=== PATIENT | female | born 1945 | race American Indian/Alaskan Native ===

== ENCOUNTER 2020-06-26 21:50 | Observation (INO) | payer MEDICARE, OTHER ==
--- NOTE | 2020-06-26 22:05 | Emergency Department Report ---
ED Chest Pain HPI - General Chief Complaint: Chest Pain Stated Complaint: CHEST PAIN Time Seen by Provider: 06/26/20 21:57 Source: patient, EMS Mode of arrival: Stretcher Limitations: No Limitations - History of Present Illness Initial Comments: Patient is 74 years old female with history of hypertension, congestive heart failure and vascular dementia. Patient discharged from the hospital today after patient had STEMI on June 21 status post cardiac catheterization and stent to the distal LAD. Patient stated that she was fine until she got home when she started having a left-sided chest pain again. Patient described her pain as pressure with no radiation. Pain is 5 out of 10. No relieving or aggravating factors. Patient received aspirin by EMS. MD Complaint: chest pain -: Sudden, This afternoon Onset: during exertion Pain Location: left chest Severity: moderate Severity scale (0 -10): 5 Quality: tightness Consistency: constant - Related Data Home Medications Medication Instructions Recorded Confirmed Last Taken Anastrozole [Arimidex] 1 tab PO QDAY 06/21/20 06/21/20 Unknown FLUoxetine HCL [Prozac] 1 cap PO QDAY 06/21/20 06/21/20 06/21/20 10:00 20 mg lasix Albuterol Sulfate [Proair 90 mcg IH 12XD PRN 06/23/20 06/23/20 Unknown Respiclick] Famotidine [Acid-Pep] 29 tab PO BID 06/23/20 06/23/20 Unknown Levothyroxine [Synthroid] 0.025 tab PO QDAY 06/23/20 06/23/20 Unknown Meclizine [Antivert] 25 tab PO TID PRN 06/23/20 06/23/20 Unknown Previous Rx's Medication Instructions Recorded Last Taken Type Aspirin EC [Halfprin EC] 81 mg PO QDAY #60 tablet. 06/26/20 Unknown Rx AtorvaSTATin [Lipitor] 80 mg PO QHS #60 tablet 06/26/20 Unknown Rx Clopidogrel [Plavix] 75 mg PO QDAY #30 tablet 06/26/20 Unknown Rx Digoxin [Lanoxin] 0.125 mg PO DAILY@1700 #30 tablet 06/26/20 Unknown Rx Furosemide [Lasix TAB] 20 mg PO QDAY #30 tablet 06/26/20 Unknown Rx Metoprolol [Lopressor TAB] 25 mg PO BID #60 tablet 06/26/20 Unknown Rx Rivaroxaban [Xarelto] 20 mg PO DAILY #30 tablet 06/26/20 Unknown Rx Spironolactone [Aldactone] 25 mg PO QDAY #30 tablet 06/26/20 Unknown Rx Allergies Allergy/AdvReac Type Severity Reaction Status Date / Time No Known Allergies Allergy Unverified 06/21/20 16:48 Heart Score - HEART Score History: Highly suspicious EKG: Non-specific Age: > 65 Risk factors: > 3 risk factors or hx of atherosclerotic disease Troponin: < normal limit HEART Score: 7 - Critical Actions Critical Actions: >7 pts:50-65% risk of adverse cardiac event. Early invasive measures ED Review of Systems ROS: Stated complaint: CHEST PAIN Other details as noted in HPI Comment: All other systems reviewed and negative Constitutional: denies: chills, fever Respiratory: denies: cough, shortness of breath Gastrointestinal: denies: abdominal pain, nausea, vomiting Musculoskeletal: denies: back pain Neurological: denies: headache, weakness ED Past Medical Hx - Past Medical History Hx Hypertension: Yes Hx Heart Attack/AMI: Yes Hx Congestive Heart Failure: Yes (diastolic HF) Hx Arthritis: Yes (left knee has soft brase intact, pt. says from home) Hx Dementia: Yes - Surgical History Hx Coronary Stent: Yes (s/p heart valve replacement, on Xarelto @ home) - Social History Smoking Status: Never Smoker - Medications Home Medications: Home Medications Medication Instructions Recorded Confirmed Last Taken Type Anastrozole [Arimidex] 1 tab PO QDAY 06/21/20 06/21/20 Unknown History FLUoxetine HCL [Prozac] 1 cap PO QDAY 06/21/20 06/21/20 06/21/20 10:00 History 20 mg lasix Albuterol Sulfate [Proair 90 mcg IH 12XD PRN 06/23/20 06/23/20 Unknown History Respiclick] Famotidine [Acid-Pep] 29 tab PO BID 06/23/20 06/23/20 Unknown History Levothyroxine [Synthroid] 0.025 tab PO QDAY 06/23/20 06/23/20 Unknown History Meclizine [Antivert] 25 tab PO TID PRN 06/23/20 06/23/20 Unknown History Aspirin EC [Halfprin EC] 81 mg PO QDAY #60 tablet. 06/26/20 Unknown Rx AtorvaSTATin [Lipitor] 80 mg PO QHS #60 tablet 06/26/20 Unknown Rx Clopidogrel [Plavix] 75 mg PO QDAY #30 tablet 06/26/20 Unknown Rx Digoxin [Lanoxin] 0.125 mg PO DAILY@1700 #30 tablet 06/26/20 Unknown Rx Furosemide [Lasix TAB] 20 mg PO QDAY #30 tablet 06/26/20 Unknown Rx Metoprolol [Lopressor TAB] 25 mg PO BID #60 tablet 06/26/20 Unknown Rx Rivaroxaban [Xarelto] 20 mg PO DAILY #30 tablet 06/26/20 Unknown Rx Spironolactone [Aldactone] 25 mg PO QDAY #30 tablet 06/26/20 Unknown Rx ED Physical Exam - General Limitations: No Limitations General appearance: alert, in no apparent distress - Head Head exam: Present: atraumatic, normocephalic, normal inspection - Eye Eye exam: Present: normal appearance, PERRL - ENT ENT exam: Present: normal exam, normal orophraynx, mucous membranes moist - Neck Neck exam: Present: normal inspection, full ROM. Absent: tenderness, meningismus - Respiratory Respiratory exam: Present: normal lung sounds bilaterally - Cardiovascular Cardiovascular Exam: Present: irregular rhythm - GI/Abdominal GI/Abdominal exam: Present: soft, normal bowel sounds. Absent: distended, tende rness, guarding, rebound, rigid, organomegaly, mass, bruit, pulsatile mass - Extremities Exam Extremities exam: Present: normal inspection, full ROM, pedal edema - Back Exam Back exam: Present: normal inspection, full ROM. Absent: CVA tenderness (R), CVA tenderness (L) - Neurological Exam Neurological exam: Present: alert, oriented X3, CN II-XII intact - Skin Skin exam: Present: ecchymosis ED Course Vital Signs 06/26/20 21:56 Temperature 97.8 F Pulse Rate 100 H Respiratory 16 Rate O2 Sat by Pulse 96 Oximetry MATHEUS score - Matheus Score Age > 65: (1) Yes Aspirin use within the Past 7 Days: (0) No 3 or more CAD Risk Factors: (1) Yes 2 or more Angina events in past 24 hrs: (1) Yes Known CAD with more than 50% Stenosis: (0) No Elevated Cardiac Markers: (1) Yes ST Deviation Greater than 0.5mm: (1) Yes MATHEUS Score: 5 ED Medical Decision Making - Lab Data Result diagrams: 06/26/20 22:11 06/26/20 22:11 - EKG Data -: EKG Interpreted by Me - EKG Data 06/26/20 23:23 Atrial fibrillation with heart rate of 93. - Radiology Data Radiology results: report reviewed - Medical Decision Making Patient is 74 years old female with history of hypertension, congestive heart failure and vascular dementia. Patient discharged from the hospital today after patient had STEMI on June 21 status post cardiac catheterization and stent to the distal LAD. Patient stated that she was fine until she got home when she started having a left-sided chest pain again. Patient described her pain as pressure with no radiation. Pain is 5 out of 10. No relieving or aggravating factors. Patient received aspirin by EMS. EKG showed atrial fibrillation with a heart rate of 93. Patient stated that her chest pain is better after the aspirin. Chest x-ray showed pulmonary edema. Patient received Lasix 40 mg IV. Labs reviewed and showed a troponin of 2.7 however patient previous troponin after the STEMI was 11. I discussed the patient with Dr. Kelvin Weaver, aircraft inspector on-call and advised to admit the patient to the hospital and they will follow up with the patient in the morning. I discussed the patient with Dr. Soto, he agreed to admit the patient to medical service for further management. Critical Care Time: Yes Critical care time in (mins) excluding proc time.: 30 Critical care attestation.: If time is entered above; I have spent that time in minutes in the direct care of this critically ill patient, excluding procedure time. ED Disposition Clinical Impression: Acute chest pain, Acute exacerbation of CHF (congestive heart failure), Elevated troponin Disposition: [id number] OP ADMIT IP TO THIS HOSP Is pt being admited?: Yes Condition: Stable Instructions: Chest Pain (ED)
[2020-06-26 22:47] LABS: Hematocrit 29.8 % (30.3-42.9); Hemoglobin 9.5 gm/dl (10.1-14.3); Mean Corpuscular HGB Conc 32 % (30-34); Mean Corpuscular Volume 76 fl (79-97); Platelet Count 320 K/mm3 (140-440); Red Blood Count 3.91 M/mm3 (3.65-5.03)
[2020-06-26 22:51] LABS: Calcium 8.7 mg/dL (8.4-10.2)
[2020-06-26 22:53] LABS: Red Cell Distribution Width 23.5 % (13.2-15.2)
--- NOTE | 2020-06-26 22:54 | XRay Report ---
XR chest 1V ap INDICATION / CLINICAL INFORMATION: Chest Pain. COMPARISON: None available. FINDINGS: SUPPORT DEVICES: None. HEART /PULMONARY VASCULATURE: Cardiac enlargement with pulmonary vasculature congestion. LUNGS / PLEURA: Diffuse increased interstitial markings, likely reflecting edema. No focal airspace c onsolidation. No sizable pleural effusion. No pneumothorax. ADDITIONAL FINDINGS: No significant additional findings. IMPRESSION: Findings most consistent with CHF with pulmonary edema. Signer Name: Pérez Wade MD Signed: 06/26/2020 10:50 PM Workstation Name: [id number]
[2020-06-26 22:59] LABS: INR 4.04 (0.87-1.13)
[2020-06-26 23:00] LABS: Partial Thromboplastin Time 46.2 Sec. (24.2-36.6)
[2020-06-26] MEDS ORDERED: FUROSEMIDE 40 MG/4 ML INJ IV ONE (23:22)
[2020-06-26 23:39] LABS: Albumin 3.6 g/dL (3.9-5); Bilirubin,Direct 0.3 mg/dL (0-0.2)
[2020-06-27] MEDS ORDERED: MORPHINE 2 MG/1 ML INJ IV PRN (00:42)
[2020-06-27] MEDS ORDERED: POTASSIUM CHLORIDE ER 20 MEQ TAB PO ONE (01:32)
[2020-06-27] MEDS ORDERED: MECLIZINE 25 MG TAB PO PRN (02:08)
[2020-06-27] MEDS: POTASSIUM CHLORIDE 10 MEQ 10 MEQ/100 ML BAG IV SCH ×2 (02:37→03:40)
[2020-06-27 03:44] LABS: Platelet Estimate Consistent w Auto; Total Cells Counted 100
[2020-06-27 03:45] LABS: Anisocytosis 2+; Hypochromasia 1+; Ovalocytes Few
[2020-06-27 03:46] LABS: Schistocytes Few
--- NOTE | 2020-06-27 04:57 | History and Physical Report ---
History of Present Illness Date of examination: 06/26/20 Date of admission: 06/26/20 23:35 Chief complaint: Chest pain History of present illness: History of presenting illness, patient is a 74-year-old female who was discharged from hospital on 06/26/2020 after being treated for ST elevation myocardial infarction with cardiac catheterization and stent placement. Patient left the hospital in the morning and then started having chest pain later on in the evening which occurred as pressure-like symptoms involving the precordial area and nonradiating, pain was worsened by movement and deep breaths. Patient also has associated symptoms of shortness of breath and diaphoresis but denied history of nausea and vomiting and denied history of fever or chills cough Past History Past Medical History: acute SC, arthritis, CAD, heart failure, hypertension, other (DEMENTIA) Past Surgical History: Other (AORTIC VALVE REPLACEMENT SURGERY) Social history: no significant social history Family history: no significant family history Medications and Allergies Allergies Allergy/AdvReac Type Severity Reaction Status Date / Time No Known Allergies Allergy Unverified 06/21/20 16:48 Home Medications Medication Instructions Recorded Confirmed Last Taken Type Anastrozole [Arimidex] 1 tab PO QDAY 06/21/20 06/21/20 Unknown History FLUoxetine HCL [Prozac] 1 cap PO QDAY 06/21/20 06/21/20 06/21/20 10:00 History 20 mg lasix Albuterol Sulfate [Proair 90 mcg IH 12XD PRN 06/23/20 06/23/20 Unknown History Respiclick] Famotidine [Acid-Pep] 29 tab PO BID 06/23/20 06/23/20 Unknown History Levothyroxine [Synthroid] 0.025 tab PO QDAY 06/23/20 06/23/20 Unknown History Meclizine [Antivert] 25 tab PO TID PRN 06/23/20 06/23/20 Unknown History Aspirin EC [Halfprin EC] 81 mg PO QDAY #60 tablet. 06/26/20 Unknown Rx AtorvaSTATin [Lipitor] 80 mg PO QHS #60 tablet 06/26/20 Unknown Rx Clopidogrel [Plavix] 75 mg PO QDAY #30 tablet 06/26/20 Unknown Rx Digoxin [Lanoxin] 0.125 mg PO DAILY@1700 #30 tablet 06/26/20 Unknown Rx Furosemide [Lasix TAB] 20 mg PO QDAY #30 tablet 06/26/20 Unknown Rx Metoprolol [Lopressor TAB] 25 mg PO BID #60 tablet 06/26/20 Unknown Rx Rivaroxaban [Xarelto] 20 mg PO DAILY #30 tablet 06/26/20 Unknown Rx Spironolactone [Aldactone] 25 mg PO QDAY #30 tablet 06/26/20 Unknown Rx Active Meds: Active Medications Acetaminophen (Acetaminophen 325 Mg Tab) 650 mg PO Q4H PRN PRN Reason: Headache Aspirin (Aspirin 81 Mg Tab Chew) 81 mg PO QDAY [facility] Famotidine (Famotidine 20 Mg Tab) 20 mg PO BID [facility] Fluoxetine HCl (Fluoxetine 20 Mg Cap) 20 mg PO QDAY [facility] Furosemide (Furosemide 40 Mg/4 Ml Inj) 40 mg IV QDAY [facility] Levothyroxine Sodium (Levothyroxine 25 Mcg Tab) 25 mcg PO QDAY@0600 [facility] Meclizine HCl (Meclizine 25 Mg Tab) 25 mg PO TID PRN PRN Reason: dizziness Metoprolol Tartrate (Metoprolol Tartrate 25 Mg Tab) 25 mg PO BID [facility] Morphine Sulfate (Morphine 2 Mg/1 Ml Inj) 2 mg IV Q3H PRN PRN Reason: Pain, Moderate (4-6) Last Admin: 06/27/20 02:17 Dose: 2 mg Documented by: Nitroglycerin (Nitroglycerin 2% Oint 1 Gm) 0.5 inch TP QIDNTG [facility]; Protocol Rivaroxaban (Rivaroxaban 20 Mg Tab) 20 mg PO DAILY [facility]; Protocol Spironolactone (Spironolactone 25 Mg Tab) 25 mg PO QDAY [facility] Review of Systems Constitutional: sweats, weakness, no fever, no chills, no night sweats, no anorexia, no fatigue Eyes: bilateral: other (NO BILATERAL EYE SYMPTOMS) Ears, nose, mouth and throat: no ear pain Breasts: deferred Cardiovascular: chest pain, orthopnea, shortness of breath, no palpitations, no rapid/irregular heart beat, no syncope, no lightheadedness Respiratory: shortness of breath, dyspnea on exertion, no cough, no cough with sputum, no excessive sputum, no hemoptysis Gastrointestinal: no abdominal pain, no nausea, no vomiting, no diarrhea, no constipation, no change in bowel habits, no hematemesis, no coffee ground emesis, no hematochezia, no loss of appetite Genitourinary Female: no Menstruation: postmenopausal Musculoskeletal: no neck stiffness, no neck pain, no low back pain Integumentary: no rash, no pruritis, no redness, no sores Neurological: no weakness, no tingling, no seizures, no syncope, no tremors, no ataxia, no vertigo, no headaches, no convulsions Psychiatric: no anxiety, no confusion Endocrine: no polydipsia, no polyuria, no nocturia, no palpatations Hematologic/Lymphatic: no easy bruising Exam - Constitutional Vitals: Temp Pulse Resp BP Pulse Ox 97.7 F 88 20 135/77 100 06/27/20 01:31 06/27/20 01:41 06/27/20 01:31 06/27/20 01:31 06/27/20 01:31 General appearance: Present: mild distress - EENT Eyes: Present: PERRL, EOM intact ENT: hearing intact, clear oral mucosa - Neck Neck: Present: supple - Respiratory Respiratory effort: normal - Cardiovascular Rhythm: regular Heart Sounds: Present: S1 & S2. Absent: gallop, systolic murmur, diastolic murmur, click - Extremities Extremities: no ischemia, No edema Peripheral Pulses: within normal limits - Abdominal General gastrointestinal: Present: soft, non-tender, non-distended. Absent: tender, distended, rigid, hepatomegaly, splenomegaly Female genitourinary: Present: deferred - Rectal Rectal Exam: deferred - Integumentary Integumentary: Present: clear, warm, dry - Musculoskeletal Musculoskeletal: generalized weakness - Psychiatric Psychiatric: appropriate mood/affect HEART Score - HEART Score EKG: Non-specific Age: > 65 Risk factors: > 3 risk factors or hx of atherosclerotic disease Troponin: Troponin T 2.620 ng/mL (0.00-0.029) H* 06/27/20 01:16 Troponin: 1-3x normal limit - Critical Actions Critical Actions: 4-6 pts:12-16.6% risk of adverse cardiac event. Should be admitted (PATIENT BEING ADMITTED AND WORKED UP FOR CAD) Results - Labs CBC & Chem 7: 06/26/20 22:11 06/26/20 22:11 Labs: Laboratory Last Values WBC 16.1 K/mm3 (4.5-11.0) H 06/26/20 22:11 RBC 3.91 M/mm3 (3.65-5.03) 06/26/20 22:11 Hgb 9.5 gm/dl (10.1-14.3) L 06/26/20 22:11 Hct 29.8 % (30.3-42.9) L 06/26/20 22:11 MCV 76 fl (79-97) L 06/26/20 22:11 MCH 24 pg (28-32) L 06/26/20 22:11 MCHC 32 % (30-34) 06/26/20 22:11 RDW 23.5 % (13.2-15.2) H 06/26/20 22:11 Plt Count 320 K/mm3 (140-440) 06/26/20 22:11 Add Manual Diff Complete 06/26/20 22:11 Total Counted 100 06/26/20 22:11 Seg Neutrophils % Heat Set Operator 06/26/20 22:11 Seg Neuts % (Manual) 91.0 % (40.0-70.0) H 06/26/20 22:11 Lymphocytes % (Manual) 4.0 % (13.4-35.0) L 06/26/20 22:11 Monocytes % (Manual) 5.0 % (0.0-7.3) 06/26/20 22:11 Nucleated RBC % Not Reportable 06/26/20 22:11 Seg Neutrophils # Man 14.7 K/mm3 (1.8-7.7) H 06/26/20 22:11 Band Neutrophils # 0.0 K/mm3 06/26/20 22:11 Lymphocytes # (Manual) 0.6 K/mm3 (1.2-5.4) L 06/26/20 22:11 Abs React Lymphs (Man) 0.0 K/mm3 06/26/20 22:11 Monocytes # (Manual) 0.8 K/mm3 (0.0-0.8) 06/26/20 22:11 Eosinophils # (Manual) 0.0 K/mm3 (0.0-0.4) 06/26/20 22:11 Basophils # (Manual) 0.0 K/mm3 (0.0-0.1) 06/26/20 22:11 Metamyelocytes # 0.0 K/mm3 06/26/20 22:11 Myelocytes # 0.0 K/mm3 06/26/20 22:11 Promyelocytes # 0.0 K/mm3 06/26/20 22:11 Blast Cells # 0.0 K/mm3 06/26/20 22:11 WBC Morphology Not Reportable 06/26/20 22:11 Hypersegmented Neuts Not Reportable 06/26/20 22:11 Hyposegmented Neuts Not Reportable 06/26/20 22:11 Hypogranular Neuts Not Reportable 06/26/20 22:11 Smudge Cells Not Reportable 06/26/20 22:11 Toxic Granulation Not Reportable 06/26/20 22:11 Toxic Vacuolation Not Reportable 06/26/20 22:11 Dohle Bodies Not Reportable 06/26/20 22:11 Pelger-Huet Anomaly Not Reportable 06/26/20 22:11 Reinier Rods Not Reportable 06/26/20 22:11 Platelet Estimate Consistent w auto 06/26/20 22:11 Clumped Platelets Not Reportable 06/26/20 22:11 Plt Clumps, EDTA Not Reportable 06/26/20 22:11 Large Platelets Not Reportable 06/26/20 22:11 Giant Platelets Not Reportable 06/26/20 22:11 Platelet Satelliting Not Reportable 06/26/20 22:11 Plt Morphology Comment Not Reportable 06/26/20 22:11 RBC Morphology Not Reportable 06/26/20 22:11 Dimorphic RBCs Not Reportable 06/26/20 22:11 Polychromasia Few 06/26/20 22:11 Hypochromasia 1+ 06/26/20 22:11 Poikilocytosis Not Reportable 06/26/20 22:11 Anisocytosis 2+ 06/26/20 22:11 Microcytosis Not Reportable 06/26/20 22:11 Macrocytosis Not Reportable 06/26/20 22:11 Spherocytes Not Reportable 06/26/20 22:11 Pappenheimer Bodies Not Reportable 06/26/20 22:11 Sickle Cells Not Reportable 06/26/20 22:11 Target Cells Not Reportable 06/26/20 22:11 Tear Drop Cells Not Reportable 06/26/20 22:11 Ovalocytes Few 06/26/20 22:11 Helmet Cells Not Reportable 06/26/20 22:11 [place] Bodies Not Reportable 06/26/20 22:11 [place] Rings Not Reportable 06/26/20 22:11 Mary Cells Not Reportable 06/26/20 22:11 Bite Cells Not Reportable 06/26/20 22:11 Crenated Cell Not Reportable 06/26/20 22:11 Elliptocytes Few 06/26/20 22:11 Acanthocytes (Spur) Not Reportable 06/26/20 22:11 Rouleaux Not Reportable 06/26/20 22:11 Hemoglobin C Crystals Not Reportable 06/26/20 22:11 Schistocytes Few 06/26/20 22:11 Malaria parasites Not Reportable 06/26/20 22:11 [place] Bodies Not Reportable 06/26/20 22:11 Hem Pathologist Commnt No 06/26/20 22:11 PT 39.7 Sec. (12.2-14.9) H 06/26/20 22:11 INR 4.04 (0.87-1.13) H 06/26/20 22:11 APTT 46.2 Sec. (24.2-36.6) H 06/26/20 22:11 Sodium 138 mmol/L (137-145) 06/26/20 22:11 Potassium 3.3 mmol/L (3.6-5.0) L 06/26/20 22:11 Chloride 103.4 mmol/L (98-107) 06/26/20 22:11 Carbon Dioxide 20 mmol/L (22-30) L 06/26/20 22:11 Anion Gap 18 mmol/L 06/26/20 22:11 BUN 16 mg/dL (7-17) 06/26/20 22:11 Creatinine 1.1 mg/dL (0.6-1.2) 06/26/20 22:11 Estimated GFR 59 ml/min 06/26/20 22:11 BUN/Creatinine Ratio 15 % 06/26/20 22:11 Glucose 113 mg/dL (65-100) H 06/26/20 22:11 Calcium 8.7 mg/dL (8.4-10.2) 06/26/20 22:11 Total Bilirubin 0.90 mg/dL (0.1-1.2) 06/26/20 22:11 Direct Bilirubin 0.3 mg/dL (0-0.2) H 06/26/20 22:11 Indirect Bilirubin 0.6 mg/dL 06/26/20 22:11 AST 50 units/L (5-40) H 06/26/20 22:11 ALT 25 units/L (7-56) 06/26/20 22:11 Alkaline Phosphatase 135 units/L (35-129) H 06/26/20 22:11 Troponin T 2.620 ng/mL (0.00-0.029) H* 06/27/20 01:16 NT-Pro-B Natriuret Pep 36570 pg/mL (0-900) H 06/26/20 22:11 Total Protein 6.2 g/dL (6.3-8.2) L 06/26/20 22:11 Albumin 3.6 g/dL (3.9-5) L 06/26/20 22:11 Albumin/Globulin Ratio 1.4 % 06/26/20 22:11 Lipase 53 units/L (13-60) 06/26/20 22:11 Sims/IV: Voiding Method External Female Catheter Assessment and Plan - Patient Problems (1) Hypokalemia Current Visit: Yes Status: Acute Plan to address problem: 1. POTASSIUM REPLACEMENT 2. BMP FOR POTASSIUM LEVEL MONITORING (2) Acute chest pain Current Visit: Yes Status: Acute Plan to address problem: 1. SERIAL CARDIAC ENZYMES 2. NITROPASTE 3. I.V MORPHINE 4. I.V ZOFRAN FOR NAUSEA AND VOMITING 5. CARDIOLOGY CONSULT 6 . ASPIRIN PO 7. TYLENOL PO FOR HEADACHE 8. OXYGEN BY NASAL CANNAL (3) Acute exacerbation of CHF (congestive heart failure) Current Visit: Yes Status: Acute Plan to address problem: 1 I.V LASIX 2. NITROPASTE 3. SERIAL CARDIAC ENZYMES 4. CARDIOLOGY CONSULT
[2020-06-27] MEDS: LEVOTHYROXINE 25 MCG TAB PO SCH (06:14)
[2020-06-27] MEDS: NITROGLYCERIN 2% OINT 1 GM TP SCH ×4 (06:15→18:46)
[2020-06-27 06:55] LABS: Creatine Kinase MB 11.6 ng/mL (0.0-4.0)
[2020-06-27 06:58] LABS: BUN/Creatinine Ratio 15; Blood Urea Nitrogen 15 mg/dL (7-17); Calcium 8.6 mg/dL (8.4-10.2); Hemolysis Index 23
[2020-06-27] MEDS ORDERED: ASPIRIN 325 MG TAB PO SCH (10:00)
[2020-06-27] MEDS: ACETAMINOPHEN 325 MG TAB PO PRN ×2 (10:37→23:50)
[2020-06-27] MEDS: RIVAROXABAN 20 MG TAB PO SCH (10:38)
[2020-06-27] MEDS: FAMOTIDINE 20 MG TAB PO SCH ×2 (10:38→22:48)
[2020-06-27] MEDS: METOPROLOL TARTRATE 25 MG TAB PO SCH ×2 (10:38→22:48)
[2020-06-27] MEDS: FLUoxetine 20 MG CAP PO SCH (10:38)
[2020-06-27] MEDS: ASPIRIN 81 MG TAB CHEW PO SCH (10:39)
[2020-06-27] MEDS: FUROSEMIDE 40 MG/4 ML INJ IV SCH (10:40)
[2020-06-27] MEDS: SPIRONOLACTONE 25 MG TAB PO SCH (10:41)
[2020-06-27] MEDS ORDERED: DIGOXIN 0.5 MG/2 ML INJ IV NR (11:05)
--- NOTE | 2020-06-27 13:06 | Consultation ---
History of Present Illness Consult date: 06/27/20 Requesting physician: ANTHONY BANEGAS Consult reason: chest pain, other (s/p STEMI) History of present illness: This patent is a 74 year old female with a significant history of CAD, s/p STEMI 06/21/2020 with PCI, HTN, HFrEF, ICMP, Persistent Atrial Fibrillation, chronic anticoagulation with xarelto, Bioprosthetic Mitral Valve Replacement, CVA with right sided residual weakness, Dementia, Arthritis. She is known to our practice. Patient was released from hospital on 06/26/2020 after being admitted for STEMI on 06/21/2020, receiving LHC and MARIAELENA Stent placement in distal LAD on same date. Patient presented to [facility] ER by EMS after chest pain returned last night with shortness of breath when supine. Cardiology was consulted for chest pain s/p recent STEMI. Chest pain was described as 5/10 pressure radiating into left arm, aggravated by movement of the shoulder. Patient has significant, resolving hematoma to upper and lower left arm from infiltrated IV access in LAC. Echo 06/21/20 EF 20-25%, mild TR, prosthetic mitral valve present, mid anteroseptal, apical septal, apcal anterior, apical lateral and apical inferior wall are akinetic CXR 06/27/20 showed pulmonary Edema. Patient received lasix 40u IV overnight and has trace lower extremity edema today. Telemetry reviewed: Atrial fibrillation, HR 100s. Past History Past Medical History: acute [place], arthritis, CAD, heart failure, hypertension, other (DEMENTIA) Past Surgical History: Other (AORTIC VALVE REPLACEMENT SURGERY) Social history: no significant social history Family history: no significant family history Medications and Allergies Allergies Allergy/AdvReac Type Severity Reaction Status Date / Time No Known Allergies Allergy Unverified 06/21/20 16:48 Home Medications Medication Instructions Recorded Confirmed Last Taken Type Anastrozole [Arimidex] 1 tab PO QDAY 06/21/20 06/21/20 Unknown History FLUoxetine HCL [Prozac] 1 cap PO QDAY 06/21/20 06/21/20 06/21/20 10:00 History 20 mg lasix Albuterol Sulfate [Proair 90 mcg IH 12XD PRN 06/23/20 06/23/20 Unknown History Respiclick] Famotidine [Acid-Pep] 29 tab PO BID 06/23/20 06/23/20 Unknown History Levothyroxine [Synthroid] 0.025 tab PO QDAY 06/23/20 06/23/20 Unknown History Meclizine [Antivert] 25 tab PO TID PRN 06/23/20 06/23/20 Unknown History Aspirin EC [Halfprin EC] 81 mg PO QDAY #60 tablet. 06/26/20 Unknown Rx AtorvaSTATin [Lipitor] 80 mg PO QHS #60 tablet 06/26/20 Unknown Rx Clopidogrel [Plavix] 75 mg PO QDAY #30 tablet 06/26/20 Unknown Rx Digoxin [Lanoxin] 0.125 mg PO DAILY@1700 #30 tablet 06/26/20 Unknown Rx Furosemide [Lasix TAB] 20 mg PO QDAY #30 tablet 06/26/20 Unknown Rx Metoprolol [Lopressor TAB] 25 mg PO BID #60 tablet 06/26/20 Unknown Rx Rivaroxaban [Xarelto] 20 mg PO DAILY #30 tablet 06/26/20 Unknown Rx Spironolactone [Aldactone] 25 mg PO QDAY #30 tablet 06/26/20 Unknown Rx Active Meds: Active Medications Acetaminophen (Acetaminophen 325 Mg Tab) 650 mg PO Q4H PRN PRN Reason: Headache Last Admin: 06/27/20 10:37 Dose: 650 mg Documented by: Aspirin (Aspirin 81 Mg Tab Chew) 81 mg PO QDAY [facility] Last Admin: 06/27/20 10:39 Dose: 81 mg Documented by: Atorvastatin Calcium (Atorvastatin 40 Mg Tab) 80 mg PO QHS [facility] Clopidogrel Bisulfate (Clopidogrel 75 Mg Tab) 75 mg PO QDAY [facility] Digoxin (Digoxin 0.5 Mg/2 Ml Inj) 0.25 mg IV ONCE NR Stop: 06/27/20 16:00 Digoxin (Digoxin 0.25 Mg Tab) 0.25 mg PO DAILY@1700 [facility] Famotidine (Famotidine 20 Mg Tab) 20 mg PO BID [facility] Last Admin: 06/27/20 10:38 Dose: 20 mg Documented by: Fluoxetine HCl (Fluoxetine 20 Mg Cap) 20 mg PO QDAY [facility] Last Admin: 06/27/20 10:38 Dose: 20 mg Documented by: Furosemide (Furosemide 40 Mg/4 Ml Inj) 40 mg IV QDAY [facility] Last Admin: 06/27/20 10:40 Dose: 40 mg Documented by: Levothyroxine Sodium (Levothyroxine 25 Mcg Tab) 25 mcg PO QDAY@0600 [facility] Last Admin: 06/27/20 06:14 Dose: 25 mcg Documented by: Meclizine HCl (Meclizine 25 Mg Tab) 25 mg PO TID PRN PRN Reason: dizziness Metoprolol Tartrate (Metoprolol Tartrate 25 Mg Tab) 25 mg PO BID [facility] Last Admin: 06/27/20 10:38 Dose: 25 mg Documented by: Morphine Sulfate (Morphine 2 Mg/1 Ml Inj) 2 mg IV Q3H PRN PRN Reason: Pain, Moderate (4-6) Last Admin: 06/27/20 02:17 Dose: 2 mg Documented by: Nitroglycerin (Nitroglycerin 2% Oint 1 Gm) 0.5 inch TP QIDNTG [facility]; Protocol Last Admin: 06/27/20 10:39 Dose: 0.5 inch Documented by: Rivaroxaban (Rivaroxaban 20 Mg Tab) 20 mg PO DAILY [facility]; Protocol Last Admin: 06/27/20 10:38 Dose: 20 mg Documented by: Spironolactone (Spironolactone 25 Mg Tab) 25 mg PO QDAY [facility] Last Admin: 06/27/20 10:41 Dose: 25 mg Documented by: Review of Systems Constitutional: no weight loss, no weight gain, no fever, no chills, no sweats Ears, nose, mouth and throat: no ear pain, no ear discharge, no tinnitis, no nose pain, no nasal discharge, no sinus pressure, no sinus pain Cardiovascular: chest pain, rapid/irregular heart beat, edema (Trace Lower Extremity Edema), shortness of breath, no syncope, no lightheadedness Respiratory: shortness of breath, no cough, no dyspnea on exertion Gastrointestinal: no abdominal pain, no nausea, no vomiting, no diarrhea, no constipation, no change in bowel habits Genitourinary Female: no dyspareunia, no pelvic pain, no flank pain Musculoskeletal: other (Left Shoulder Pain), no neck stiffness, no neck pain Integumentary: no rash, no pruritis, no redness, no sores, no wounds Neurological: no head injury, no transient paralysis, no paralysis, no weakness, no parathesias, no numbness, no tingling, no seizures Psychiatric: no anxiety Endocrine: no cold intolerance, no heat intolerance Hematologic/Lymphatic: easy bruising, easy bleeding Allergic/Immunologic: no urticaria Physical Examination Last Vital Signs Temp 99.2 F 06/27/20 12:08 Pulse 92 H 06/27/20 12:08 Resp 20 06/27/20 04:20 BP 137/85 06/27/20 12:08 Pulse Ox 94 06/27/20 12:08 General appearance: no acute distress HEENT: Positive: PERRL, Normocephaly, Mucus Membranes Moist Neck: Positive: neck supple, trachea midline Cardiac: Positive: irregularly irregular, S1/S2 Lungs: Positive: Decreased Breath Sounds Neuro: Positive: Grossly Intact Abdomen: Positive: Unremarkable Skin: Positive: Bruising (Large hematoma to left arm). Negative: Rash, Wound Incision: Cardiac Cath Site (Right Groin LHC site C/D/I no bleeding or hematoma noted) Extremities: Present: upper extr. pulses, lower extr. pulses, edema (Trace lower extremity edema) Results 06/26/20 22:11 06/27/20 06:05 Cardiac Enzymes 06/26/20 06/27/20 Range/Units 22:11 06:05 AST 50 H (5-40) units/L CK-MB (CK-2) 11.6 H (0.0-4.0) ng/mL Coagulation 06/26/20 Range/Units 22:11 PT 39.7 H (12.2-14.9) Sec. INR 4.04 H (0.87-1.13) APTT 46.2 H (24.2-36.6) Sec. CBC 06/26/20 Range/Units 22:11 WBC 16.1 H (4.5-11.0) K/mm3 RBC 3.91 (3.65-5.03) M/mm3 Hgb 9.5 L (10.1-14.3) gm/dl Hct 29.8 L (30.3-42.9) % Plt Count 320 (140-440) K/mm3 Comprehensive Metabolic Panel 06/26/20 06/26/20 06/27/20 Range/Units 22:11 22:11 06:05 Sodium 138 139 (137-145) mmol/L Potassium 3.3 L 3.9 (3.6-5.0) mmol/L Chloride 103.4 103.2 (98-107) mmol/L Carbon Dioxide 20 L 21 L (22-30) mmol/L BUN 16 15 (7-17) mg/dL Creatinine 1.1 1.0 (0.6-1.2) mg/dL Glucose 113 H 104 H (65-100) mg/dL Calcium 8.7 8.6 (8.4-10.2) mg/dL Direct Bilirubin 0.3 H (0-0.2) mg/dL Indirect Bilirubin 0.6 mg/dL AST 50 H (5-40) units/L ALT 25 (7-56) units/L Alkaline Phosphatase 135 H (35-129) units/L Total Protein 6.2 L (6.3-8.2) g/dL Albumin 3.6 L (3.9-5) g/dL - Imaging and Cardiology Echo: report reviewed (EF 20-25%, mild TR, prosthetic mitral valve present, mid anteroseptal, apical septal, apcal anterior, apical lateral and apical inferior wall are akinetic) EKG: report reviewed, image reviewed - EKG Interpretation EKG shows: atrial fibrillation EKG interpretations - Telemetry EKG Rhythm: Atrial Fibrillation - EKG Supraventricular dysrhythmia: atrial fibrillation Assessment and Plan Patient presents with chest pain/shoulder pain and shortness of breath s/p recent STEMI with stent placement. Admission ECG with Afib, no new acute ische aman changes. She is noted to be in atrial fibrillation with HR 100s. Agree with diuresis with Lasix IV. Will continue Spironolactone. Optimize HR: Give single dose IV digoxin, resume Digoxin PO tomorrow. Continue PO lopressor. If BP remains stable will consider addition of ACEI/ARB tomorrow. Continue Xarelto for AC. Continue ASA 81mg and plavix. Will repeat CXR to monitor pulmonary edema. Echo 06/21/20 EF 20-25%, mild TR, prosthetic mitral valve present, mid anteroseptal, apical septal, apcal anterior, apical lateral and apical inferior wall are akinetic. Will follow. This patient was seen in conjunction with Dr Wolfe who agrees with this assessment and plan of care. - Patient Problems (1) Acute HFrEF (heart failure with reduced ejection fraction) Current Visit: Yes Status: Acute (2) Ischemic cardiomyopathy Current Visit: Yes Status: Chronic (3) Acute chest pain Current Visit: Yes Status: Acute (4) Elevated troponin Current Visit: Yes Status: Acute (5) Atrial fibrillation Current Visit: Yes Status: Chronic Qualifiers: Atrial fibrillation type: unspecified Qualified Code(s): I48.91 - Unspecified atrial fibrillation (6) CAD (coronary artery disease) Current Visit: Yes Status: Chronic (7) Stented coronary artery Current Visit: Yes Status: Chronic (8) Dementia Current Visit: Yes Status: Chronic (9) History of CVA (cerebrovascular accident) Current Visit: Yes Status: Chronic Plan to address problem: right sided residual weakness (10) History of mitral valve repair Current Visit: Yes Status: Chronic Plan to address problem: Bioprosthetic (11) Anemia Current Visit: Yes Status: Acute
[2020-06-27 14:50] LABS: Creatine Kinase MB 12.4 ng/mL (0.0-4.0)
[2020-06-27] MEDS: CLOPIDOGREL 75 MG TAB PO SCH (14:52)
[2020-06-28 05:11] LABS: Hematocrit 28.9 % (30.3-42.9); Hemoglobin 9.1 gm/dl (10.1-14.3); Mean Corpuscular HGB Conc 32 % (30-34); Mean Corpuscular Volume 76 fl (79-97); Platelet Count 328 K/mm3 (140-440)
[2020-06-28 05:33] LABS: Red Cell Distribution Width 23.6 % (13.2-15.2)
[2020-06-28 05:38] LABS: BUN/Creatinine Ratio 18; Blood Urea Nitrogen 16 mg/dL (7-17); Calcium 8.7 mg/dL (8.4-10.2); Hemolysis Index 5
[2020-06-28] MEDS: NITROGLYCERIN 2% OINT 1 GM TP SCH ×4 (06:19→18:36)
[2020-06-28] MEDS: LEVOTHYROXINE 25 MCG TAB PO SCH (06:20)
[2020-06-28] MEDS ORDERED: POTASSIUM CHLORIDE ER 20 MEQ TAB PO NR (08:00)
--- NOTE | 2020-06-28 08:01 | XRay Report ---
CHEST 1 VIEW INDICATION: Heart failure. COMPARISON: 06/26/2020 FINDINGS: Support devices: None. Heart: Stable mild cardiomegaly. Midline sternotomy is noted. Lungs/Pleura: 25% decrease in pulmonary venous congestion is suspected. The lungs are clear otherwise . No large pleural effusion or pneumothorax. Additional findings: None. IMPRESSION: Mild improvement. Signer Name: Adam Lucero Jr, MD Signed: 06/28/2020 7:57 AM Workstation Name: [id number]
[2020-06-28] MEDS: RIVAROXABAN 20 MG TAB PO SCH (09:17)
[2020-06-28] MEDS: SPIRONOLACTONE 25 MG TAB PO SCH (09:17)
[2020-06-28] MEDS: FAMOTIDINE 20 MG TAB PO SCH ×2 (09:17→22:08)
[2020-06-28] MEDS: METOPROLOL TARTRATE 25 MG TAB PO SCH ×3 (09:17→22:12)
[2020-06-28] MEDS: FLUoxetine 20 MG CAP PO SCH (09:17)
[2020-06-28] MEDS: FUROSEMIDE 40 MG/4 ML INJ IV SCH (09:18)
[2020-06-28] MEDS: ASPIRIN 81 MG TAB CHEW PO SCH (09:18)
[2020-06-28] MEDS: CLOPIDOGREL 75 MG TAB PO SCH (09:22)
--- NOTE | 2020-06-28 10:44 | Progress Note ---
Assessment and Plan Pt appears to be clinically improving. CXR today shows improvement in pulmonary edema. Optimize HR - increase PO lopressor. Cont all other present cardiac management. F/u BMP in AM. PT and OT evaluations in progress. Discharge planning per case management. The patient has been seen in conjunction with Dr. Wolfe who agrees with the a ssessment and plan of care. - Patient Problems (1) Acute HFrEF (heart failure with reduced ejection fraction) Current Visit: Yes Status: Acute (2) Ischemic cardiomyopathy Current Visit: Yes Status: Chronic (3) CAD (coronary artery disease) Current Visit: Yes Status: Chronic (4) Stented coronary artery Current Visit: Yes Status: Chronic (5) History of ST elevation myocardial infarction (STEMI) Current Visit: Yes Status: Chronic Plan to address problem: 06/21/2020 (6) Atrial fibrillation Current Visit: Yes Status: Chronic Qualifiers: Atrial fibrillation type: unspecified Qualified Code(s): I48.91 - Unspecified atrial fibrillation (7) S/P mitral valve replacement with bioprosthetic valve Current Visit: Yes Status: Chronic (8) Anemia Current Visit: Yes Status: Acute (9) Elevated troponin Current Visit: Yes Status: Chronic (10) History of CVA (cerebrovascular accident) Current Visit: Yes Status: Chronic (11) Dementia Current Visit: Yes Status: Chronic Subjective Date of service: 06/28/20 Principal diagnosis: HF Interval history: pt resting comfortably in bed, feeling better. tele reviewed - in AFib HR CVR overnight, 100-115s this AM with activity. Objective Last Vital Signs Temp 97.4 F L 06/28/20 09:11 Pulse 111 H 06/28/20 09:29 Resp 18 06/28/20 09:29 BP 99/68 06/28/20 09:29 Pulse Ox 100 06/28/20 09:29 - Physical Examination General: No Apparent Distress HEENT: Positive: PERRL, Normocephaly, Mucus Membranes Moist Neck: Positive: neck supple, trachea midline Cardiac: Positive: irregularly irregular, S1/S2 Lungs: Positive: Decreased Breath Sounds Neuro: Positive: Grossly Intact Abdomen: Positive: Unremarkable Skin: Positive: Bruising (Large hematoma to left arm). Negative: Rash, Wound Incision: Cardiac Cath Site (Right Groin C site C/D/I no bleeding or hematoma noted) Extremities: Present: upper extr. pulses, lower extr. pulses, edema (Trace lower extremity edema) - Labs and Meds Cardiac Enzymes 06/27/20 Range/Units 13:09 CK-MB (CK-2) 12.4 H (0.0-4.0) ng/mL CBC 06/28/20 Range/Units 04:47 WBC 14.4 H (4.5-11.0) K/mm3 RBC 3.80 (3.65-5.03) M/mm3 Hgb 9.1 L (10.1-14.3) gm/dl Hct 28.9 L (30.3-42.9) % Plt Count 328 (140-440) K/mm3 Comprehensive Metabolic Panel 06/28/20 Range/Units 04:47 Sodium 136 L (137-145) mmol/L Potassium 3.4 L (3.6-5.0) mmol/L Chloride 102.2 (98-107) mmol/L Carbon Dioxide 22 (22-30) mmol/L BUN 16 (7-17) mg/dL Creatinine 0.9 (0.6-1.2) mg/dL Glucose 106 H (65-100) mg/dL Calcium 8.7 (8.4-10.2) mg/dL - Imaging and Cardiology EKG: report reviewed, image reviewed Echo: report reviewed (EF 20-25%, mild TR, prosthetic mitral valve present, mid anteroseptal, apical septal, apcal anterior, apical lateral and apical inferior wall are akinetic) - Telemetry EKG Rhythm: Atrial Fibrillation
--- NOTE | 2020-06-28 12:13 | Progress Note ---
Assessment and Plan Assessment and plan: #Chest pain - likely musculoskeletal -s/p stent of LAD lesion -resolved -Continue aspirin and plavix -Cardiology following #Acute on chronic systolic heart failure. Left ventriculography revealed sever e and anterior apical hypokinesis. EF 30 to 35% On diuretics Cardiology following #Atrial fibrillation w RVR Continue rate control medication On xarelto #History of CVA with residual defect PT/OT #History of heart valve repair. Cardiology following #Hypokalemia Trend K Disposition-patient's daughter wants patient to be transferred to [place] as patients cardiology works with [place]. Transfer initiated. Case to go to utilization review as per transfer center History Interval history: Patient seen and examined at bedside this morning No new complaints. States that she feels a little bit tired Cardiology on board. Patient's daughter wants patient to be transferred to [place] as her systems program manager was there. Transfer has been initiated. Case will go to utilization review as per transfer center [ Hospitalist Physical - Physical exam Narrative exam: VITAL SIGNS: Reviewed. GENERAL: Awake HEAD: No signs of head trauma. EYES: Pupils are equal. Extraocular motions intact. MOUTH: Oropharynx is normal. NECK: No adenopathy, no JVD. CHEST: Mostly clear CARDIAC: normal S1 and S2, without murmurs, gallops, or rubs. ABDOMEN: Soft, non tender and non distended. No rebound or guarding, and no masses palpated. Bowel Sounds normal. MUSCULOSKELETAL: No edema NEUROLOGIC EXAM: Alert and oriented x3. No focal neurologic deficits SKIN: No obvious lesions - Constitutional Vitals: Temp Pulse Resp BP Pulse Ox 97.4 F L 111 H 18 99/68 100 06/28/20 09:11 06/28/20 09:29 06/28/20 09:29 06/28/20 09:29 06/28/20 09:29 HEART Score - HEART Score EKG: Non-specific Age: > 65 Risk factors: > 3 risk factors or hx of atherosclerotic disease Troponin: Troponin T 2.140 ng/mL (0.00-0.029) H* 06/27/20 13:09 Troponin: 1-3x normal limit - Critical Actions Critical Actions: 4-6 pts:12-16.6% risk of adverse cardiac event. Should be admitted (PATIENT BEING ADMITTED AND WORKED UP FOR CAD) Results - Labs CBC & Chem 7: 06/29/20 05:11 06/29/20 05:11 Labs: Laboratory Last Values WBC 14.4 K/mm3 (4.5-11.0) H 06/28/20 04:47 RBC 3.80 M/mm3 (3.65-5.03) 06/28/20 04:47 Hgb 9.1 gm/dl (10.1-14.3) L 06/28/20 04:47 Hct 28.9 % (30.3-42.9) L 06/28/20 04:47 MCV 76 fl (79-97) L 06/28/20 04:47 MCH 24 pg (28-32) L 06/28/20 04:47 MCHC 32 % (30-34) 06/28/20 04:47 RDW 23.6 % (13.2-15.2) H 06/28/20 04:47 Plt Count 328 K/mm3 (140-440) 06/28/20 04:47 Add Manual Diff Complete 06/26/20 22:11 Total Counted 100 06/26/20 22:11 Seg Neutrophils % Plate Furnace Operator 06/26/20 22:11 Seg Neuts % (Manual) 91.0 % (40.0-70.0) H 06/26/20 22:11 Lymphocytes % (Manual) 4.0 % (13.4-35.0) L 06/26/20 22:11 Monocytes % (Manual) 5.0 % (0.0-7.3) 06/26/20 22:11 Nucleated RBC % Not Reportable 06/26/20 22:11 Seg Neutrophils # Man 14.7 K/mm3 (1.8-7.7) H 06/26/20 22:11 Band Neutrophils # 0.0 K/mm3 06/26/20 22:11 Lymphocytes # (Manual) 0.6 K/mm3 (1.2-5.4) L 06/26/20 22:11 Abs React Lymphs (Man) 0.0 K/mm3 06/26/20 22:11 Monocytes # (Manual) 0.8 K/mm3 (0.0-0.8) 06/26/20 22:11 Eosinophils # (Manual) 0.0 K/mm3 (0.0-0.4) 06/26/20 22:11 Basophils # (Manual) 0.0 K/mm3 (0.0-0.1) 06/26/20 22:11 Metamyelocytes # 0.0 K/mm3 06/26/20 22:11 Myelocytes # 0.0 K/mm3 06/26/20 22:11 Promyelocytes # 0.0 K/mm3 06/26/20 22:11 Blast Cells # 0.0 K/mm3 06/26/20 22:11 WBC Morphology Not Reportable 06/26/20 22:11 Hypersegmented Neuts Not Reportable 06/26/20 22:11 Hyposegmented Neuts Not Reportable 06/26/20 22:11 Hypogranular Neuts Not Reportable 06/26/20 22:11 Smudge Cells Not Reportable 06/26/20 22:11 Toxic Granulation Not Reportable 06/26/20 22:11 Toxic Vacuolation Not Reportable 06/26/20 22:11 Dohle Bodies Not Reportable 06/26/20 22:11 Pelger-Huet Anomaly Not Reportable 06/26/20 22:11 Reinier Rods Not Reportable 06/26/20 22:11 Platelet Estimate Consistent w auto 06/26/20 22:11 Clumped Platelets Not Reportable 06/26/20 22:11 Plt Clumps, EDTA Not Reportable 06/26/20 22:11 Large Platelets Not Reportable 06/26/20 22:11 Giant Platelets Not Reportable 06/26/20 22:11 Platelet Satelliting Not Reportable 06/26/20 22:11 Plt Morphology Comment Not Reportable 06/26/20 22:11 RBC Morphology Not Reportable 06/26/20 22:11 Dimorphic RBCs Not Reportable 06/26/20 22:11 Polychromasia Few 06/26/20 22:11 Hypochromasia 1+ 06/26/20 22:11 Poikilocytosis Not Reportable 06/26/20 22:11 Anisocytosis 2+ 06/26/20 22:11 Microcytosis Not Reportable 06/26/20 22:11 Macrocytosis Not Reportable 06/26/20 22:11 Spherocytes Not Reportable 06/26/20 22:11 Pappenheimer Bodies Not Reportable 06/26/20 22:11 Sickle Cells Not Reportable 06/26/20 22:11 Target Cells Not Reportable 06/26/20 22:11 Tear Drop Cells Not Reportable 06/26/20 22:11 Ovalocytes Few 06/26/20 22:11 Helmet Cells Not Reportable 06/26/20 22:11 [place] Bodies Not Reportable 06/26/20 22:11 [place] Rings Not Reportable 06/26/20 22:11 Mary Cells Not Reportable 06/26/20 22:11 Bite Cells Not Reportable 06/26/20 22:11 Crenated Cell Not Reportable 06/26/20 22:11 Elliptocytes Few 06/26/20 22:11 Acanthocytes (Spur) Not Reportable 06/26/20 22:11 Rouleaux Not Reportable 06/26/20 22:11 Hemoglobin C Crystals Not Reportable 06/26/20 22:11 Schistocytes Few 06/26/20 22:11 Malaria parasites Not Reportable 06/26/20 22:11 [place] Bodies Not Reportable 06/26/20 22:11 Hem Pathologist Commnt No 06/26/20 22:11 PT 39.7 Sec. (12.2-14.9) H 06/26/20 22:11 INR 4.04 (0.87-1.13) H 06/26/20 22:11 APTT 46.2 Sec. (24.2-36.6) H 06/26/20 22:11 Sodium 136 mmol/L (137-145) L 06/28/20 04:47 Potassium 3.4 mmol/L (3.6-5.0) L 06/28/20 04:47 Chloride 102.2 mmol/L (98-107) 06/28/20 04:47 Carbon Dioxide 22 mmol/L (22-30) 06/28/20 04:47 Anion Gap 15 mmol/L 06/28/20 04:47 BUN 16 mg/dL (7-17) 06/28/20 04:47 Creatinine 0.9 mg/dL (0.6-1.2) 06/28/20 04:47 Estimated GFR > 60 ml/min 06/28/20 04:47 BUN/Creatinine Ratio 18 % 06/28/20 04:47 Glucose 106 mg/dL (65-100) H 06/28/20 04:47 Calcium 8.7 mg/dL (8.4-10.2) 06/28/20 04:47 Total Bilirubin 0.90 mg/dL (0.1-1.2) 06/26/20 22:11 Direct Bilirubin 0.3 mg/dL (0-0.2) H 06/26/20 22:11 Indirect Bilirubin 0.6 mg/dL 06/26/20 22:11 AST 50 units/L (5-40) H 06/26/20 22:11 ALT 25 units/L (7-56) 06/26/20 22:11 Alkaline Phosphatase 135 units/L (35-129) H 06/26/20 22:11 Total Creatine Kinase 319 units/L (30-135) H 06/27/20 13:09 CK-MB (CK-2) 12.4 ng/mL (0.0-4.0) H 06/27/20 13:09 CK-MB (CK-2) Rel Index 3.8 (0-4) 06/27/20 13:09 Troponin T 2.140 ng/mL (0.00-0.029) H* 06/27/20 13:09 NT-Pro-B Natriuret Pep 20051 pg/mL (0-900) H 06/26/20 22:11 Total Protein 6.2 g/dL (6.3-8.2) L 06/26/20 22:11 Albumin 3.6 g/dL (3.9-5) L 06/26/20 22:11 Albumin/Globulin Ratio 1.4 % 06/26/20 22:11 Lipase 53 units/L (13-60) 06/26/20 22:11 Sims/IV: Voiding Method External Female Catheter Active Medications - Current Medications Current Medications: Generic Name Dose Route Start Last Admin Trade Name Freq PRN Reason Stop Dose Admin Acetaminophen 650 mg 06/27/20 00:45 06/27/20 23:50 Acetaminophen 325 Mg Tab PO 650 mg Q4H PRN Administration Headache Aspirin 81 mg 06/27/20 10:00 06/28/20 09:18 Aspirin 81 Mg Tab Chew PO 81 mg QDAY MANJEET Administration Atorvastatin Calcium 80 mg 06/27/20 22:00 06/27/20 22:48 Atorvastatin 40 Mg Tab PO 80 mg QHS MANJEET Administration Clopidogrel Bisulfate 75 mg 06/27/20 12:00 06/28/20 09:22 Clopidogrel 75 Mg Tab PO 75 mg QDAY MANJEET Administration Digoxin 0.125 mg 06/28/20 17:00 Digoxin 0.125 Mg Tab PO DAILY@1700 [facility] Famotidine 20 mg 06/27/20 10:00 06/28/20 09:17 Famotidine 20 Mg Tab PO 20 mg BID MANJEET Administration Fluoxetine HCl 20 mg 06/27/20 10:00 06/28/20 09:17 Fluoxetine 20 Mg Cap PO 20 mg QDAY MANJEET Administration Furosemide 40 mg 06/27/20 10:00 06/28/20 09:18 Furosemide 40 Mg/4 Ml Inj IV 40 mg QDAY MANJEET Administration Levothyroxine Sodium 25 mcg 06/27/20 06:00 06/28/20 06:20 Levothyroxine 25 Mcg Tab PO 25 mcg QDAY@0600 [facility] Administration Meclizine HCl 25 mg 06/27/20 02:08 Meclizine 25 Mg Tab PO TID PRN dizziness Metoprolol Tartrate 25 mg 06/28/20 09:00 06/28/20 09:17 Metoprolol Tartrate 25 Mg Tab PO 25 mg TID MANJEET Administration Morphine Sulfate 2 mg 06/27/20 00:42 06/27/20 02:17 Morphine 2 Mg/1 Ml Inj IV 2 mg Q3H PRN Administration Pain, Moderate (4-6) Nitroglycerin 0.5 inch 06/27/20 06:00 06/28/20 09:19 Nitroglycerin 2% Oint 1 Gm TP 0.5 inch QIDNTG [facility] Administration Protocol Rivaroxaban 20 mg 06/27/20 10:00 06/28/20 09:17 Rivaroxaban 20 Mg Tab PO 20 mg DAILY MANJEET Administration Protocol Spironolactone 25 mg 06/27/20 10:00 06/28/20 09:17 Spironolactone 25 Mg Tab PO 25 mg QDAY MANJEET Administration
[2020-06-28] MEDS ORDERED: DIGOXIN 0.25 MG TAB PO SCH ×2 (17:00)
[2020-06-28] MEDS: DIGOXIN 0.125 MG TAB PO SCH (18:35)
[2020-06-29] MEDS: NITROGLYCERIN 2% OINT 1 GM TP SCH (05:47)
[2020-06-29] MEDS: LEVOTHYROXINE 25 MCG TAB PO SCH (05:49)
[2020-06-29 06:53] LABS: Hematocrit 28.2 % (30.3-42.9); Hemoglobin 8.7 gm/dl (10.1-14.3); Mean Corpuscular HGB Conc 31 % (30-34); Mean Corpuscular Volume 77 fl (79-97); Platelet Count 410 K/mm3 (140-440); Red Blood Count 3.67 M/mm3 (3.65-5.03)
[2020-06-29 06:59] LABS: Red Cell Distribution Width 24.5 % (13.2-15.2)
[2020-06-29 09:59] LABS: Bacteria,Urine 1+ /HPF (Negative); Bilirubin,Urine NEG (Negative); Blood,Urine MOD (Negative); Color,Urine Amber (Yellow); Mucus,Urine 3+ /HPF
--- NOTE | 2020-06-29 10:09 | Progress Note ---
Assessment and Plan Assessment and plan: #Chest pain - ?likely musculoskeletal -s/p stent of LAD lesion -resolved -Continue aspirin and plavix -Cardiology following #Acute on chronic systolic heart failure. Left ventriculography revealed spike re and anterior apical hypokinesis. EF 30 to 35% On diuretics Cardiology following #Atrial fibrillation w RVR Continue rate control medication On xarelto #History of CVA with residual defect PT/OT #History of heart valve repair. Cardiology following #Hypokalemia Trend K Disposition-patient's daughter wants patient to be transferred to [facility] as patients cardiology works with [facility]. Transfer initiated. Case now with utilization review as per transfer center History Interval history: Patient seen and examined at bedside this morning Has no complaints. Daughter requests for transfer to [facility] (transfer has been initiated but it is with [facility] dept) Hospitalist Physical - Physical exam Narrative exam: VITAL SIGNS: Reviewed. GENERAL: Awake HEAD: No signs of head trauma. EYES: Pupils are equal. Extraocular motions intact. MOUTH: Oropharynx is normal. NECK: No adenopathy, no JVD. CHEST: Mostly clear CARDIAC: normal S1 and S2, without murmurs, gallops, or rubs. ABDOMEN: Soft, non tender and non distended. No rebound or guarding, and no masses palpated. Bowel Sounds normal. MUSCULOSKELETAL: No edema NEUROLOGIC EXAM: Alert and oriented x3. No focal neurologic deficits SKIN: No obvious lesions - Constitutional Vitals: Temp Pulse Resp BP Pulse Ox 97.5 F L 73 18 116/72 100 06/29/20 08:12 06/29/20 08:12 06/29/20 08:12 06/29/20 08:12 06/29/20 08:12 HEART Score - HEART Score EKG: Non-specific Age: > 65 Risk factors: > 3 risk factors or hx of atherosclerotic disease Troponin: Troponin T 2.140 ng/mL (0.00-0.029) H* 06/27/20 13:09 Troponin: 1-3x normal limit - Critical Actions Critical Actions: 4-6 pts:12-16.6% risk of adverse cardiac event. Should be admitted (PATIENT BEING ADMITTED AND WORKED UP FOR CAD) Results - Labs CBC & Chem 7: 06/29/20 05:11 06/29/20 05:11 Labs: Laboratory Last Values WBC 16.0 K/mm3 (4.5-11.0) H 06/29/20 05:11 RBC 3.67 M/mm3 (3.65-5.03) 06/29/20 05:11 Hgb 8.7 gm/dl (10.1-14.3) L 06/29/20 05:11 Hct 28.2 % (30.3-42.9) L 06/29/20 05:11 MCV 77 fl (79-97) L 06/29/20 05:11 MCH 24 pg (28-32) L 06/29/20 05:11 MCHC 31 % (30-34) 06/29/20 05:11 RDW 24.5 % (13.2-15.2) H 06/29/20 05:11 Plt Count 410 K/mm3 (140-440) 06/29/20 05:11 Add Manual Diff Complete 06/26/20 22:11 Total Counted 100 06/26/20 22:11 Seg Neutrophils % Application Development Team Lead 06/26/20 22:11 Seg Neuts % (Manual) 91.0 % (40.0-70.0) H 06/26/20 22:11 Lymphocytes % (Manual) 4.0 % (13.4-35.0) L 06/26/20 22:11 Monocytes % (Manual) 5.0 % (0.0-7.3) 06/26/20 22:11 Nucleated RBC % Not Reportable 06/26/20 22:11 Seg Neutrophils # Man 14.7 K/mm3 (1.8-7.7) H 06/26/20 22:11 Band Neutrophils # 0.0 K/mm3 06/26/20 22:11 Lymphocytes # (Manual) 0.6 K/mm3 (1.2-5.4) L 06/26/20 22:11 Abs React Lymphs (Man) 0.0 K/mm3 06/26/20 22:11 Monocytes # (Manual) 0.8 K/mm3 (0.0-0.8) 06/26/20 22:11 Eosinophils # (Manual) 0.0 K/mm3 (0.0-0.4) 06/26/20 22:11 Basophils # (Manual) 0.0 K/mm3 (0.0-0.1) 06/26/20 22:11 Metamyelocytes # 0.0 K/mm3 06/26/20 22:11 Myelocytes # 0.0 K/mm3 06/26/20 22:11 Promyelocytes # 0.0 K/mm3 06/26/20 22:11 Blast Cells # 0.0 K/mm3 06/26/20 22:11 WBC Morphology Not Reportable 06/26/20 22:11 Hypersegmented Neuts Not Reportable 06/26/20 22:11 Hyposegmented Neuts Not Reportable 06/26/20 22:11 Hypogranular Neuts Not Reportable 06/26/20 22:11 Smudge Cells Not Reportable 06/26/20 22:11 Toxic Granulation Not Reportable 06/26/20 22:11 Toxic Vacuolation Not Reportable 06/26/20 22:11 Dohle Bodies Not Reportable 06/26/20 22:11 Pelger-Huet Anomaly Not Reportable 06/26/20 22:11 Reinier Rods Not Reportable 06/26/20 22:11 Platelet Estimate Consistent w auto 06/26/20 22:11 Clumped Platelets Not Reportable 06/26/20 22:11 Plt Clumps, EDTA Not Reportable 06/26/20 22:11 Large Platelets Not Reportable 06/26/20 22:11 Giant Platelets Not Reportable 06/26/20 22:11 Platelet Satelliting Not Reportable 06/26/20 22:11 Plt Morphology Comment Not Reportable 06/26/20 22:11 RBC Morphology Not Reportable 06/26/20 22:11 Dimorphic RBCs Not Reportable 06/26/20 22:11 Polychromasia Few 06/26/20 22:11 Hypochromasia 1+ 06/26/20 22:11 Poikilocytosis Not Reportable 06/26/20 22:11 Anisocytosis 2+ 06/26/20 22:11 Microcytosis Not Reportable 06/26/20 22:11 Macrocytosis Not Reportable 06/26/20 22:11 Spherocytes Not Reportable 06/26/20 22:11 Pappenheimer Bodies Not Reportable 06/26/20 22:11 Sickle Cells Not Reportable 06/26/20 22:11 Target Cells Not Reportable 06/26/20 22:11 Tear Drop Cells Not Reportable 06/26/20 22:11 Ovalocytes Few 06/26/20 22:11 Helmet Cells Not Reportable 06/26/20 22:11 [place] Bodies Not Reportable 06/26/20 22:11 [place] Rings Not Reportable 06/26/20 22:11 [place] Cells Not Reportable 06/26/20 22:11 Bite Cells Not Reportable 06/26/20 22:11 Crenated Cell Not Reportable 06/26/20 22:11 Elliptocytes Few 06/26/20 22:11 Acanthocytes (Spur) Not Reportable 06/26/20 22:11 Rouleaux Not Reportable 06/26/20 22:11 Hemoglobin C Crystals Not Reportable 06/26/20 22:11 Schistocytes Few 06/26/20 22:11 Malaria parasites Not Reportable 06/26/20 22:11 [place] Bodies Not Reportable 06/26/20 22:11 Hem Pathologist Commnt No 06/26/20 22:11 PT 39.7 Sec. (12.2-14.9) H 06/26/20 22:11 INR 4.04 (0.87-1.13) H 06/26/20 22:11 APTT 46.2 Sec. (24.2-36.6) H 06/26/20 22:11 Sodium 138 mmol/L (137-145) 06/29/20 05:11 Potassium 4.2 mmol/L (3.6-5.0) D 06/29/20 05:11 Chloride 102.1 mmol/L (98-107) 06/29/20 05:11 Carbon Dioxide 21 mmol/L (22-30) L 06/29/20 05:11 Anion Gap 19 mmol/L 06/29/20 05:11 BUN 25 mg/dL (7-17) H 06/29/20 05:11 Creatinine 1.1 mg/dL (0.6-1.2) 06/29/20 05:11 Estimated GFR 59 ml/min 06/29/20 05:11 BUN/Creatinine Ratio 23 % 06/29/20 05:11 Glucose 91 mg/dL (65-100) 06/29/20 05:11 Calcium 8.0 mg/dL (8.4-10.2) L 06/29/20 05:11 Total Bilirubin 0.90 mg/dL (0.1-1.2) 06/26/20 22:11 Direct Bilirubin 0.3 mg/dL (0-0.2) H 06/26/20 22:11 Indirect Bilirubin 0.6 mg/dL 06/26/20 22:11 AST 50 units/L (5-40) H 06/26/20 22:11 ALT 25 units/L (7-56) 06/26/20 22:11 Alkaline Phosphatase 135 units/L (35-129) H 06/26/20 22:11 Total Creatine Kinase 319 units/L (30-135) H 06/27/20 13:09 CK-MB (CK-2) 12.4 ng/mL (0.0-4.0) H 06/27/20 13:09 CK-MB (CK-2) Rel Index 3.8 (0-4) 06/27/20 13:09 Troponin T 2.140 ng/mL (0.00-0.029) H* 06/27/20 13:09 NT-Pro-B Natriuret Pep 14992 pg/mL (0-900) H 06/26/20 22:11 Total Protein 6.2 g/dL (6.3-8.2) L 06/26/20 22:11 Albumin 3.6 g/dL (3.9-5) L 06/26/20 22:11 Albumin/Globulin Ratio 1.4 % 06/26/20 22:11 Lipase 53 units/L (13-60) 06/26/20 22:11 Urine Bilirubin Neg (Negative) 06/28/20 Unknown Urine RBC (Auto) 3.0 /HPF (0.0-6.0) 06/28/20 Unknown U Epithel Cells (Auto) 1.0 /HPF (0-13.0) 06/28/20 Unknown Sims/IV: Voiding Method Incontinent Active Medications - Current Medications Current Medications: Generic Name Dose Route Start Last Admin Trade Name Freq PRN Reason Stop Dose Admin Acetaminophen 650 mg 06/27/20 00:45 06/27/20 23:50 Acetaminophen 325 Mg Tab PO 650 mg Q4H PRN Administration Headache Aspirin 81 mg 06/27/20 10:00 06/28/20 09:18 Aspirin 81 Mg Tab Chew PO 81 mg QDAY MANJEET Administration Atorvastatin Calcium 80 mg 06/27/20 22:00 06/28/20 22:07 Atorvastatin 40 Mg Tab PO 80 mg QHS MANJEET Administration Clopidogrel Bisulfate 75 mg 06/27/20 12:00 06/28/20 09:22 Clopidogrel 75 Mg Tab PO 75 mg QDAY MANJEET Administration Digoxin 0.125 mg 06/28/20 17:00 06/28/20 18:35 Digoxin 0.125 Mg Tab PO 0.125 mg DAILY@1700 MANJEET Administration Famotidine 20 mg 06/27/20 10:00 06/28/20 22:08 Famotidine 20 Mg Tab PO 20 mg BID MANJEET Administration Fluoxetine HCl 20 mg 06/27/20 10:00 06/28/20 09:17 Fluoxetine 20 Mg Cap PO 20 mg QDAY MANJEET Administration Furosemide 40 mg 06/27/20 10:00 06/28/20 09:18 Furosemide 40 Mg/4 Ml Inj IV 40 mg QDAY MANJEET Administration Levothyroxine Sodium 25 mcg 06/27/20 06:00 06/29/20 05:49 Levothyroxine 25 Mcg Tab PO 25 mcg QDAY@0600 MANJEET Administration Meclizine HCl 25 mg 06/27/20 02:08 Meclizine 25 Mg Tab PO TID PRN dizziness Metoprolol Tartrate 25 mg 06/28/20 09:00 06/28/20 22:12 Metoprolol Tartrate 25 Mg Tab PO 25 mg TID MANJEET Administration Morphine Sulfate 2 mg 06/27/20 00:42 06/27/20 02:17 Morphine 2 Mg/1 Ml Inj IV 2 mg Q3H PRN Administration Pain, Moderate (4-6) Rivaroxaban 20 mg 06/27/20 10:00 06/28/20 09:17 Rivaroxaban 20 Mg Tab PO 20 mg DAILY MANJEET Administration Protocol Spironolactone 25 mg 06/27/20 10:00 06/28/20 09:17 Spironolactone 25 Mg Tab PO 25 mg QDAY MANJEET Administration
[2020-06-29] MEDS: RIVAROXABAN 20 MG TAB PO SCH (10:27)
[2020-06-29] MEDS: SPIRONOLACTONE 25 MG TAB PO SCH (10:27)
[2020-06-29] MEDS: CLOPIDOGREL 75 MG TAB PO SCH (10:27)
[2020-06-29] MEDS: FUROSEMIDE 40 MG/4 ML INJ IV SCH (10:27)
[2020-06-29] MEDS: FLUoxetine 20 MG CAP PO SCH (10:27)
[2020-06-29] MEDS: FAMOTIDINE 20 MG TAB PO SCH (10:27)
[2020-06-29] MEDS: ASPIRIN 81 MG TAB CHEW PO SCH (10:27)
[2020-06-29] MEDS: METOPROLOL TARTRATE 25 MG TAB PO SCH (10:33)
--- NOTE | 2020-06-29 11:45 | Progress Note ---
Assessment and Plan Pt appears to be at euvolemia. Currently stable cardiac status. Convert Lopressor TID to Toprol 75mg qd. Convert IV Lasix to PO Lasix 40mg qd. Cont all other present cardiac management. PT and OT evaluations in progress. Discharge planning per case management. Pt can discharge from cardiology standpoint. Follow up in our [place] office with Dr. Sreedhar Santacruz on 07/06/2020 @ 1:45PM. The patient has been seen in conjunction with Dr. Wolfe who agrees with the assessment and plan of care. - Patient Problems (1) Acute HFrEF (heart failure with reduced ejection fraction) Current Visit: Yes Status: Acute (2) Ischemic cardiomyopathy Current Visit: Yes Status: Chronic (3) CAD (coronary artery disease) Current Visit: Yes Status: Chronic (4) Stented coronary artery Current Visit: Yes Status: Chronic (5) History of ST elevation myocardial infarction (STEMI) Current Visit: Yes Status: Chronic Plan to address problem: 06/21/2020 (6) Atrial fibrillation Current Visit: Yes Status: Chronic Qualifiers: Atrial fibrillation type: unspecified Qualified Code(s): I48.91 - Unspecified atrial fibrillation (7) S/P mitral valve replacement with bioprosthetic valve Current Visit: Yes Status: Chronic (8) Anemia Current Visit: Yes Status: Acute (9) Elevated troponin Current Visit: Yes Status: Chronic (10) History of CVA (cerebrovascular accident) Current Visit: Yes Status: Chronic (11) Dementia Current Visit: Yes Status: Chronic Subjective Date of service: 06/29/20 Principal diagnosis: Heart Failure reduced Ejection Fraction Interval history: Patient is resting in bed comfortably. Alert & Oriented. No new cardiac complaints. Tele reviewed: Afib, HR 90s. Objective Last Vital Signs Temp 97.5 F L 06/29/20 08:12 Pulse 82 06/29/20 10:00 Resp 18 06/29/20 08:12 BP 116/72 06/29/20 08:12 Pulse Ox 100 06/29/20 08:12 - Physical Examination General: No Apparent Distress HEENT: Positive: PERRL, Normocephaly, Mucus Membranes Moist Neck: Positive: neck supple, trachea midline Cardiac: Positive: irregularly irregular, S1/S2 Lungs: Positive: clear to auscultation, Normal Breath Sounds Neuro: Positive: Grossly Intact Abdomen: Positive: Unremarkable Skin: Positive: Bruising (Large hematoma to left arm). Negative: Rash, Wound Incision: Cardiac Cath Site (Right Groin LHC site C/D/I no bleeding or hematoma noted) Extremities: Present: upper extr. pulses, lower extr. pulses, edema (Trace lower extremity edema) - Labs and Meds CBC 06/29/20 Range/Units 05:11 WBC 16.0 H (4.5-11.0) K/mm3 RBC 3.67 (3.65-5.03) M/mm3 Hgb 8.7 L (10.1-14.3) gm/dl Hct 28.2 L (30.3-42.9) % Plt Count 410 (140-440) K/mm3 Comprehensive Metabolic Panel 06/29/20 Range/Units 05:11 Sodium 138 (137-145) mmol/L Potassium 4.2 D (3.6-5.0) mmol/L Chloride 102.1 (98-107) mmol/L Carbon Dioxide 21 L (22-30) mmol/L BUN 25 H (7-17) mg/dL Creatinine 1.1 (0.6-1.2) mg/dL Glucose 91 (65-100) mg/dL Calcium 8.0 L (8.4-10.2) mg/dL - Imaging and Cardiology EKG: report reviewed, image reviewed Echo: report reviewed (EF 20-25%, mild TR, prosthetic mitral valve present, mid anteroseptal, apical septal, apcal anterior, apical lateral and apical inferior wall are akinetic)
[2020-06-29] MEDS ORDERED: cefTRIAXone/NS 1 GM/50 ML 1 GM/50 ML BAG IV SCH (12:00)
--- NOTE | 2020-06-29 14:24 | Discharge Summary ---
Providers - Providers Date of Admission: 06/26/20 23:35 Date of discharge: 06/29/20 Attending physician: KENISHA BROWN 06/26/20 23:21 Consult to Physician [CONS] Stat Comment: Dr. Parisi spoke with Dr. Jones @ [phone] Consulting Provider: ROB JONES Physician Instructions: Reason For Exam: Chest pain, status post NSTEMI 1 week ago 06/27/20 14:09 Physical Therapy Evaluation and Treat [CONS] Routine Comment: For debility Reason For Exam: Eval and treat 06/27/20 14:12 Occupational Therapy Evaluate and Treat [CONS] Routine Comment: Debility Reason For Exam: Eval and treat Primary care physician: QUALITATIVE FIELD COORDINATOR Hospitalization Condition: Stable Hospital course: 74 year old female with a significant history of CAD, s/p STEMI 06/21/2020 with PCI, HTN, HFrEF, ICMP, Persistent Atrial Fibrillation, chronic anticoagulation with xarelto, Bioprosthetic Mitral Valve Replacement, CVA with right sided residual weakness, Dementia, Arthritis. Patient was released from hospital on 06/26/2020 after being admitted for STEMI on 06/21/2020, receiving LHC and MARIAELENA Stent placement in distal LAD on same date. Patient presented to [facility] ER by EMS after chest pain returned with shortness of breath when supine. Cardiology was consulted for chest pain s/p recent STEMI. Chest pain was described as 5/10 pressure radiating into left arm, aggravated by movement of the shoulder. In the ED, her chest xray showed pulmonary edema. She received IV lasix. Telemetry showed atrial fibrillation with RVR. Cardiology was consulted. Patient's medications have been adjusted by cardiology. Patient's daughter requested for transfer to [facility] and transfer was initiated on 06/28. Her case went to utilization review. She had a physical therapy evaluation and did not perform well so PT recommends subacute placement. On 06/29, patient seen by cardiology and medications have been adjusted. Patient is medically stable from cardiology standpoint. Patient is euvolemic. She has been found to have a UTI and will complete antibiotics. Received a call from [facility] space sciences director-Dr. Vergara and discussed case with her and she suggested discharge as per cardiology recommendations here and have patient follow-up with Dr. Drummond at [facility]. She will convey the message to patient's space sciences director. Tried to call patient's daughter this a.m but no response [could not do leave a message as voicemail has not been set up]. Patient is medically stable for discharge home Disposition: [id number] HOME UNDER HOME [facility] Time spent for discharge: 30 mins - Discharge Diagnoses (1) Acute chest pain Status: Acute Comment: Possibly musculoskeletal (2) Acute exacerbation of CHF (congestive heart failure) Status: Acute (3) Atrial fibrillation Status: Chronic Qualifiers: Atrial fibrillation type: unspecified Qualified Code(s): I48.91 - Unspecified atrial fibrillation Core Measure Documentation - Palliative Care Palliative Care/ Comfort Measures: Not Applicable - Core Measures Any of the following diagnoses?: none Exam - Physical Exam Narrative exam: VITAL SIGNS: Reviewed. GENERAL: Awake HEAD: No signs of head trauma. EYES: Pupils are equal. Extraocular motions intact. MOUTH: Oropharynx is normal. NECK: No adenopathy, no JVD. CHEST: Clear to auscultation bilaterally CARDIAC: normal S1 and S2, without murmurs, gallops, or rubs. ABDOMEN: Soft, non tender and non distended. No rebound or guarding, and no masses palpated. Bowel Sounds normal. MUSCULOSKELETAL: No edema NEUROLOGIC EXAM: Alert and oriented x3. No focal neurologic deficits SKIN: No obvious lesions - Constitutional Vitals: Temp Pulse Resp BP Pulse Ox 99.6 F 81 18 90/52 99 06/29/20 12:28 06/29/20 12:19 06/29/20 12:29 06/29/20 12:19 06/29/20 12:19 Plan Additional Instructions: Continue cardiac medications as ordered. Complete antibiotics in 7 days. Follow-up with primary space sciences director in the office in a week Follow up with: PRIMARY CAREMD [Primary Care Provider] - 3-5 Days Prescriptions: AtorvaSTATin [Lipitor] 80 mg PO QHS #60 tablet Spironolactone [Aldactone] 25 mg PO QDAY #30 tablet Cefdinir 300 mg PO BID #14 capsule Aspirin EC [Halfprin EC] 81 mg PO QDAY #60 tablet. Digoxin [Lanoxin] 0.125 mg PO DAILY@1700 #30 tablet Furosemide [Lasix TAB] 40 mg PO QDAY #30 tablet Metoprolol Xl [Metoprolol SUCCINATE ER TAB] 25 mg PO QDAY #30 tablet Metoprolol Xl [Metoprolol SUCCINATE ER TAB] 50 mg PO QDAY #30 tablet Clopidogrel [Plavix] 75 mg PO QDAY #30 tablet Levothyroxine [Synthroid] 25 mcg PO QDAY@0600 #30 tablet Rivaroxaban [Xarelto] 20 mg PO DAILY #30 tablet
[2020-06-29 16:55] VITALS: BP 115/56
[2020-06-29] MEDS: DIGOXIN 0.125 MG TAB PO SCH (17:16)
[2020-06-30] MEDS ORDERED: METOPROLOL SUCCINATE XL 25 MG TAB PO SCH (10:00)
[2020-06-30] MEDS ORDERED: FUROSEMIDE 40 MG TAB PO SCH (10:00)
[2020-06-30] MEDS ORDERED: METOPROLOL SUCCINATE XL 50 MG TAB PO SCH ×2 (10:00)
== END 2020-06-29 18:24 | disposition home health service (06) ==
LOC: ED 21:50 → 4A 23:35 → OBSVTOIN 06-28 12:04 → INTOOBSV 06-28 12:04
PROVIDERS: ADMIT Internal Medicine; ATTEND Internal Medicine
DX: R07.89 Other chest pain (principal); M62.81 Muscle weakness (generalized); I50.21 Acute systolic (congestive) heart failure; E87.6 Hypokalemia; N39.0 Urinary tract infection, site not specified
CPT/HCPCS: 36415; 71045; 80048; 80076; 81001; 82550; 82553; 83690; 83880; 84484; 85007; 85025; 85027; 85610; 85730; 87076; 87086; 87186; 87641; 93005; 96365; 96375; 97162; 97165; 99291; A9270; G0378; J0696; J1940; J2270; J3480